=== PATIENT | male | born 1970 | race Hispanic/Latino ===

== ENCOUNTER → 2018-10-19 | Day surgery (SDC) | payer BC ==
[~2018-10-19] MED LIST: ACETAMINOPHEN 1000 MG/100 ML 100 ML IV ONE; CEFAZOLIN SOD 1 GM VIAL ONE; CEFAZOLIN SOD 1 GM/NS 50ML 50 ML IV ONE; CHLORZOXAZONE500 MG PO; DEXAMETHASONE SOD PHOS INJ 4 MG/ML VIAL ONE; FENOPROFEN CAL600 MG PO; FENTANYL CITRATE/PF 100MCG/2 ML INJ ONE; HYDRALAZINE HCL 20 MG/ML VIAL ONE; HYDROMORPHONE 2MG/ML 2 MG/ML ML ONE; LABETALOL HCL 0 ML ONE; LIDOCAINE HCL 2% LOCAL INJ 5 ML SDV VIAL INJ ONE; LISINOPRIL10 MG PO; MIDAZOLAM HCL 2 MG/2 ML VIAL ONE; ONDANSETRON HCL INJ 2MG/ML 2ML 2 MG/ML VIAL ONE; PROPOFOL IV EMULSION 10 MG/ML 20 ML VIAL ONE; SEVOFLURANE INHAL SOLN 250 ML PEN BTL ONE
--- NOTE | 2018-10-19 07:13 | NUR ---
SPIRITUAL CARE - Pre-Surgery Assessment: Pt in bed. Pt's family at bedside. Pt reported supportive attention from family and friends. Intervention: I provided pastoral presence, hospitality, and sympathetic listening. I acquainted pt with availability of study abroad coordinator while hospitalized. Outcome: Pt expressed appreciation for visit. No need for follow up indicated at this time. [facility] Spiritual Care Department O: [phone] Pager: [phone] ([phone] from)
[2018-10-19 12:30] VITALS: BP 138/96
--- NOTE | 2018-10-19 16:06 | Operative Report ---
DATE OF PROCEDURE: 10/19/2018 SURGEON: Solomon Matamoros MD PLANT MAINTENANCE SUPERVISOR: Roly Rosales, certified PA. PREOPERATIVE DIAGNOSIS: Right ankle bimalleolar fracture. POSTOPERATIVE DIAGNOSIS: Right ankle bimalleolar fracture. PROCEDURE: Open reduction and internal fixation of right ankle. INDICATIONS: The patient is a 47-year-old gentleman, who has a displaced bimalleolar fracture of his right ankle. The findings and options have been discussed. We recommend surgical stabilization. The risks and benefits have been explained. The added challenges due to his weight of nearly 300 pounds has been explained. He states he understands and wishes to proceed. PROCEDURE IN DETAIL: The patient was brought to the operating room and placed under general anesthetic. His right lower extremity was prepped and draped in a sterile manner. A preoperative time-out was performed. The extremity was exsanguinated and a proximal tourniquet was inflated to 350 mmHg. Initial attention was directed toward the distal fibula. An incision was made. The fracture site was carefully exposed. A lobster claw reduction clamp was used to obtain an anatomic reduction. An anterior to posterior lag screw was placed. Because of his size, I elected to place a 3.5 mm plate on the lateral distal fibula. This was fixed proximally and distally. The plate was positioned in a way to buttress the posteriorly displaced distal fibula. Attention was then directed toward the medial malleolus. An incision was made over the inside of the ankle. The fracture site was carefully identified. There was some involuted periosteum and deltoid ligament. This was removed. The fracture site was gently debrided. This was anatomically reduced and fixed with two partially threaded 40 mm in length cancellous screws. Excellent fixation was felt to be obtained. Intraoperative x-rays confirmed an anatomic reduction of the fracture. Both of the wounds were irrigated and closed with subcuticular Vicryl and jonah. A sterile bandage in a U splint and foot plate were applied. Estimated blood loss is about 10 mL. All needle and sponge counts were correct. Solomon Matamoros MD DR/ESTHER /[id number]
--- NOTE | 2018-10-21 21:50 | Operative Report ---
DATE OF PROCEDURE: SURGEON: Solomon Matamoros MD BROADCAST DIRECTOR OPERATIONS: Roly Rosales, certified PA. PREOPERATIVE DIAGNOSIS: Displaced bimalleolar ankle fracture, right lower leg. POSTOPERATIVE DIAGNOSIS: Displaced bimalleolar ankle fracture, right lower leg. PROCEDURE: Open reduction and internal fixation, right ankle. INDICATIONS: The patient is a 47-year-old gentleman, who has a displaced right ankle fracture. The findings and options have been discussed. We plan on open reduction with internal fixation. The risks and benefits have been explained. He states he understands and wishes to proceed. DESCRIPTION OF THE PROCEDURE: The patient was brought to the operating room and placed under general anesthetic. His right lower extremity was prepped and draped in a sterile manner. A preoperative time-out was performed. The extremity was exsanguinated and a proximal tourniquet was inflated to 350 mmHg. He had received prophylactic antibiotics in the holding area. Initial attention was directed towards the distal fibula. An incision was made and the fracture site was carefully exposed. Care was taken to avoid excessive periosteal stripping. The fracture was fixed with a combination of cortical and cancellous screws. Because of his size, I elected to use a 3.5 mm plate. Nice secure fixation was felt to be obtained. Attention was directed towards the medial aspect. This fracture was also carefully exposed and reduced. This was fixed with partially threaded cancellous screws. Intraoperative x-rays were taken. He had anatomic reduction and good positioning of the hardware. The wounds were irrigated and closed. A sterile bandage and a splint were applied. He was extubated and transported to the recovery room in stable condition. Blood loss was less than 10 mL and all needle and sponge counts were correct. Solomon Matamoros MD DR/ESTHER /[id number]
== END | disposition home or self-care (01) ==
LOC: OR 06:23
PROVIDERS: ATTEND Specialist
DX: S82.841A Displaced bimalleolar fracture of right lower leg, initial encounter for closed fracture (principal); E66.01 Morbid (severe) obesity due to excess calories; I10 Essential (primary) hypertension; G47.33 Obstructive sleep apnea (adult) (pediatric); R00.0 Tachycardia, unspecified; X50.1XXA Overexertion from prolonged static or awkward postures, initial encounter; Y92.009 Unspecified place in unspecified non-institutional (private) residence as the place of occurrence of the external cause; Z01.810 Encounter for preprocedural cardiovascular examination; Z68.42 Body mass index [BMI] 45.0-49.9, adult
CPT/HCPCS: 27814; 76000; 93005; C1713 ×6; J0131; J0360; J0690 ×2; J1100; J1170; J2001; J2250; J2405; J2704

== ENCOUNTER 2021-08-18 15:02 | Emergency (ER) | payer BC ==
[~2021-08-18] VITALS: Ht 165.1 cm; Wt 108.9 kg
[~2021-08-18 15:02] MED LIST changes: -ACETAMINOPHEN 1000 MG/100 ML 100 ML IV ONE; -CEFAZOLIN SOD 1 GM VIAL ONE; -CEFAZOLIN SOD 1 GM/NS 50ML 50 ML IV ONE; -DEXAMETHASONE SOD PHOS INJ 4 MG/ML VIAL ONE; -FENTANYL CITRATE/PF 100MCG/2 ML INJ ONE; -HYDRALAZINE HCL 20 MG/ML VIAL ONE; -HYDROMORPHONE 2MG/ML 2 MG/ML ML ONE; -LABETALOL HCL 0 ML ONE; -LIDOCAINE HCL 2% LOCAL INJ 5 ML SDV VIAL INJ ONE; -MIDAZOLAM HCL 2 MG/2 ML VIAL ONE; -ONDANSETRON HCL INJ 2MG/ML 2ML 2 MG/ML VIAL ONE; -PROPOFOL IV EMULSION 10 MG/ML 20 ML VIAL ONE; -SEVOFLURANE INHAL SOLN 250 ML PEN BTL ONE
[2021-08-18 16:17] LABS: CLARITY,URINE CLEAR (CLEAR); COLOR,URINE YELLOW (YELLOW); LEUKOCYTE ESTERASE ,URINE NEGATIVE (NEGATIVE); NITRITE,URINE NEGATIVE (NEGATIVE)
[2021-08-18 16:18] LABS: KETONES,URINE NEGATIVE (NEGATIVE); PROTEIN,URINE DIPSTICK NEGATIVE (NEGATIVE); URINE UROBILINOGEN 0.2 mg/dL (0.2 - 1)
[2021-08-18 16:29] LABS: EPITHELIAL CELLS,URINE FEW /LPF; WBC,URINE (MAN) 0-5 /HPF (0-5)
== END 2021-08-18 17:52 | disposition home or self-care (01) ==
LOC: ER 15:10
DX: R35.0 Frequency of micturition (principal); I10 Essential (primary) hypertension
CPT/HCPCS: 36415; 81001; 82948; 87086; 99283

== ENCOUNTER → 2022-06-26 | Outpatient (CLI) | payer BC | LOC: RAD 06:00 → EDSTATUS 08:00 | PROVIDERS: ATTEND Internal Medicine Gastroenterology | DX: Z12.11 Encounter for screening for malignant neoplasm of colon (principal); Z68.44 Body mass index [BMI] 60.0-69.9, adult; I10 Essential (primary) hypertension; Z53.8 Procedure and treatment not carried out for other reasons | CPT/HCPCS: 93005 ==

== ENCOUNTER 2022-11-19 11:34 | Emergency (ER) | payer OTHER, BC ==
[~2022-11-19] VITALS: Ht 165.1 cm; Wt 108.9 kg
[2022-11-19 11:57] VITALS: O2SAT 100
[2022-11-19] MEDS ORDERED: KETOROLAC TROMETHAMINE 60 MG/2 ML VIAL IM ONE (12:15)
[2022-11-19] MEDS ORDERED: ULTRAM 50MG50 MG PO ×2 (13:19→13:41)
[2022-11-19] MEDS ORDERED: NAPROXEN250 MG PO ×2 (13:19→13:40)
== END 2022-11-19 13:15 | disposition home or self-care (01) ==
LOC: ER 11:44
DX: S83.8X2A Sprain of other specified parts of left knee, initial encounter (principal); X50.1XXA Overexertion from prolonged static or awkward postures, initial encounter; Y92.89 Other specified places as the place of occurrence of the external cause; I10 Essential (primary) hypertension
CPT/HCPCS: 73562; 99283; J1885